=== PATIENT | male | born 1970 | race Caucasian/White ===

== ENCOUNTER 2017-12-14 19:09 | Emergency (ER) | payer BC ==
[~2017-12-14] VITALS: Ht 185.4 cm; Wt 99.8 kg
[2017-12-14 20:10] VITALS: Ht 185.4 cm; Wt 99.8 kg
[2017-12-14] MEDS ORDERED: MoRPHine SULFATE 10 MG/ML CARP/VIAL IV STA (20:30)
[2017-12-14] MEDS ORDERED: ONDANSETRON INJ 2 MG/ML 2 ML VIAL IV STA (20:30)
[2017-12-14] MEDS ORDERED: MoRPHine SULFATE 4 MG/ML 1 ML CARP\\VIAL ONE (21:12)
[2017-12-14] MEDS ORDERED: MoRPHine SULFATE 2 MG/ML CARP ONE (21:12)
--- NOTE | 2017-12-14 21:16 | DIAGNOSTIC IMAGING REPORT ---
LEFT HUMERUS 2 VIEWS HISTORY: Left arm pain. fall, eval fracture, dislocation COMPARISON: None. FINDINGS: Transverse fracture within the midshaft of the left humerus which demonstrates up to 6 mm of medial displacement. No dislocation of the humerus. Soft tissue swelling within the mid upper arm. There is also mild medial angulation. No radiopaque foreign bodies. IMPRESSION: Mildly displaced and angulated midshaft fracture of the left humerus. Electronically signed by: Christiano Knowles M.D. 12/14/2017 9:15 PM Dictated Date/Time: 12/14/2017 9:13 PM
--- NOTE | 2017-12-14 22:11 | EMERGENCY ROOM VISIT NOTE ---
ED Visit Note First contact with patient: 20:16 CHIEF COMPLAINT: Arm injury HISTORY OF PRESENT ILLNESS: This 47-year-old male patient presents to the emergency department with complaint of left arm injury. Patient states that he slipped on ice and fell on to the upper arm earlier today with immediate onset of pain. There is limitation of motion of the arm because of the pain. The patient did not hear a cracking sound at the time of the injury. There was no dizziness, chest pain, shortness of breath, or loss of consciousness before the fall. Patient denies any previous injuries to this arm. Patient denies any other associated injuries with the fall, denies hitting his head or loss of consciousness. He denies any wrist pain, elbow pain, or shoulder pain. He denies any numbness or tingling in the arm. He does not take any blood thinners. REVIEW OF SYSTEMS: A complete 10 point review of systems was reviewed with the patient with pertinent positives and negatives as per history of present illness. All else were negative. PMH: Hypertension SOCIAL HISTORY: Patient lives at home. Non-smoker, no excessive alcohol use. PHYSICAL EXAM: Vital Signs: Reviewed nurse's notes. The mid upper arm is very swollen, mildly ecchymotic, tender to palpation, and deformed in the middle of the upper arm. The range of motion of the shoulder is limited in all directions because of the pain. There is no tenderness of the clavicle. There is no bony tenderness to palpation of the shoulder, elbow, or wrist. Radial pulse 2+ with brisk cap refill in the fingers. Sensation intact distally to light touch. Patient is able to make a fist and give a thumbs up. LUNGS: The lungs are clear to auscultation. HEART: Regular rate and rhythm without murmurs , ectopy, gallops, or rubs. NEUROLOGICAL: Alert and cooperative. Sensory and motor functions grossly intact. HEAD: Atraumatic, without temporal or scalp tenderness. EYES: PERRL, EOMI, no discharge or injection. IMAGING: LEFT HUMERUS 2 VIEWS HISTORY: Left arm pain. fall, eval fracture, dislocation COMPARISON: None. FINDINGS: Transverse fracture within the midshaft of the left humerus which demonstrates up to 6 mm of medial displacement. No dislocation of the humerus. Soft tissue swelling within the mid upper arm. There is also mild medial angulation. No radiopaque foreign bodies. IMPRESSION: Mildly displaced and angulated midshaft fracture of the left humerus. EMERGENCY DEPARTMENT COURSE: I examined the patient. Differential diagnosis includes arm contusion, fracture, dislocation, among others. An X-ray of the humerus shows an acute fracture of the mid-shaft of the humerus which is mildly displaced and medially angulated. The patient was given IV morphine for his pain, with good improvement. I spoke with Dr. Dwyer, orthopedic surgery, he recommends coaptation splint and sling, and the patient should call tomorrow morning to set up a follow-up appointment.. The patient was placed in an Ortho- Glass coaptation splint and sling under my supervision, neurovascularly intact post-splinting. The patient was given a dose of oxycodone for additional pain management, and given a take-home pack, as well as a prescription sent to the pharmacy for ongoing pain management. Patient was updated on discharge instructions and plan for follow-up with orthopedic surgery. He was also given strict return precautions should his symptoms worsen, he verbalized understanding. Patient was discharged home in stable condition and ambulatory. Current/Historical Medications Scheduled Ascorbic Acid (Vitamin C), 1,000 MG PO D Enalapril (Vasotec), 1 TAB PO DAILY Ferrous Sulfate (Iron), 1 TAB PO 2XWK Metoprolol Succ (Toprol Xl) (Toprol-Xl), 0.5 TAB PO DAILY Multivitamins/Minerals (Mvi With Minerals), 1 TAB PO DAILY Scheduled PRN Oxycodone Ir (Roxicodone Ir), 1-2 TAB PO Q6H PRN for Severe Pain Vital Signs Date Time Temp Pulse Resp B/P (MAP) Pulse Ox O2 Delivery O2 Flow Rate FiO2 12/14/17 23:52 36.9 71 18 147/86 100 12/14/17 23:42 71 18 147/86 12/14/17 20:10 36.9 68 20 166/85 100 Room Air Medications Administered Medications (Trade) Dose Ordered Sig/Jerome Route Start Time Stop Time Status Last Admin Dose Admin Ondansetron HCl (Zofran Inj) 4 mg NOW STAT IV 12/14/17 20:30 12/14/17 20:33 DC 12/14/17 21:15 4 MG Morphine Sulfate (MoRPHine SULFATE INJ) 2 mg STK-MED ONCE .ROUTE 12/14/17 21:12 12/14/17 21:13 DC 12/14/17 21:16 2 MG Morphine Sulfate (MoRPHine SULFATE INJ) 4 mg STK-MED ONCE .ROUTE 12/14/17 21:12 12/14/17 21:13 DC 12/14/17 21:15 4 MG Oxycodone HCl (Roxicodone Immediate Rel Tab) 5 mg NOW STAT PO 12/14/17 22:51 12/14/17 22:53 DC 12/14/17 23:04 5 MG Oxycodone HCl (Roxicodone Immediate Rel 5MG Home Pack) 1 homepack UD ONCE PO 12/14/17 23:00 12/14/17 23:01 DC 12/14/17 23:37 1 HOMEPACK Departure Information Impression Primary Impression: Fracture of shaft of left humerus Dispostion Home / Self-Care Condition GOOD Prescriptions Oxycodone Ir (Roxicodone Ir) 5 Mg Tab 1-2 TAB PO Q6H Y for Severe Pain, #20 TAB Prov: Jane Pang, SENIOR BUSINESS MANAGER 12/14/17 Referrals Jude Turner M.D. (PCP) Darron Dwyer D.O. Patient Instructions ED Fx Upper Ext, [facility] Additional Instructions You were seen and treated in the emergency department today for your left arm injury. X-rays today show a fracture of the midportion of your humerus bone. Keep the arm in the splint until you are seen by the orthopedic surgeon for follow up. Call tomorrow morning after 8:30am to schedule an appointment. Do not get the splint wet. Wear the sling for comfort. Apply ice to the upper arm intermittently and frequently over the next 2 days. Keep the arm elevated as much as possible. Oxycodone every 4 to 6 hours if needed for severe pain. You may also take Tylenol 1000 mg every 8 hours as needed for pain, not more than 3000 mg in 24 hours. Please return to the emergency Department for severe worsening pain, new numbness or tingling in the arm or inability to move your fingers, discoloration of the hand/fingers, or any other concerns. Work Instructions Return To Work: 3 days Problem Qualifiers Primary Impression: Fracture of shaft of left humerus Encounter type: initial encounter Fracture type: closed Fracture morphology : comminuted Fracture alignment: displaced Qualified Codes: S42.352A - Displaced comminuted fracture of shaft of humerus, left arm, initial encounter for closed fracture
[2017-12-14] MEDS ORDERED: METO25TA3 PO (22:49)
[2017-12-14] MEDS ORDERED: ENAL5TAB83 PO ×2 (22:49)
[2017-12-14] MEDS ORDERED: MULT-513 PO ×2 (22:51)
[2017-12-14] MEDS ORDERED: OXYCODONE HCL IR 5 MG TAB (IMMEDIATE RELEASE) PO STA (22:51)
[2017-12-14] MEDS ORDERED: FERR1TAB23 PO ×2 (22:51)
[2017-12-14] MEDS ORDERED: ASCO10003 PO ×2 (22:51)
[2017-12-14] MEDS ORDERED: OXYCODONE IR HOME PACK PO ONE (23:00)
[2017-12-14] MEDS ORDERED: OXYC1TAB3 PO (23:45)
[2017-12-14 23:52] VITALS: BP 147/86; PULSE 71; TEMP 36.9; O2SAT 100
[2017-12-15] MEDS ORDERED: OXYC1TAB3 PO ×2 (16:32)
[2017-12-15] MEDS ORDERED: MISC1CAP60 PO ×2 (16:33)
[2017-12-15] MEDS ORDERED: SELENIUM PO ×2 (16:45)
[2017-12-15] MEDS ORDERED: FLAX1CAP11 PO ×2 (16:45)
[2017-12-15] MEDS ORDERED: METO25TA3 PO ×2 (16:46)
== END 2017-12-14 23:52 | disposition home or self-care (01) ==
LOC: C.EDB 19:12 → C.EDD 23:52
DX: S42.352A Displaced comminuted fracture of shaft of humerus, left arm, initial encounter for closed fracture (principal); W00.0XXA Fall on same level due to ice and snow, initial encounter; I10 Essential (primary) hypertension

== ENCOUNTER 2017-12-16 10:59 | Day surgery (SDC) | payer BC ==
--- NOTE | 2017-12-15 12:03 | HISTORY & PHYSICAL EXAMINATION ---
DATE OF ADMISSION: 12/16/2017 SUBJECTIVE CHIEF COMPLAINT: The patient is a 47-year-old male that sustained a fall onto the outstretched left upper extremity after slipping on ice on 12/15/2017. He was placed in a coaptation splint in the Emergency Room. Initial x-rays in the Emergency Room demonstrated alignment of the mid shaft humerus fracture. New x-rays in the office demonstrated increased angulation greater than 20 degrees of the fracture. It was discussed with the patient, and he would like to proceed with an ORIF of the left humerus fracture. PAST MEDICAL HISTORY: Significant for hypertension. PAST SURGICAL HISTORY: [place] teeth surgery. SOCIAL HISTORY: Denies alcohol use, denies smoking or tobacco use. Denies IV or illegal drug use. FAMILY HISTORY: His uncle had a history of a heart attack. ALLERGIES: PENICILLIN, HE DEVELOPS A RASH; TETANUS, HE GETS SWELLING. MEDICATIONS: Vasotec 5 mg daily and metoprolol 25 mg daily. REVIEW OF SYSTEMS: He denies headaches, fevers, chills, double vision, blurry vision, sore throat, cough, chest pain, nausea, vomiting, diarrhea, constipation, numbness or tingling, tired, urinary difficulties thoughts to harm himself or harm others or depression. He is positive for having some left shoulder pain. OBJECTIVE: GENERAL APPEARANCE: The patient is a 47-year-old male, sitting in no acute distress. He is well dressed, well nourished. VITAL SIGNS: He is 6 feet 1 inch tall. He is 226 pounds, blood pressure is 122/80. HEENT: Normocephalic, atraumatic. Extraocular movements are intact. Mucosa was moist. No septal deviation. NECK: Supple with no lymphadenopathy, no JVD, no thyromegaly. HEART: Regular rate and rhythm with no murmurs or gallops. LUNGS: Clear to auscultation. No wheezing or rhonchi. ABDOMEN: Soft, nontender, nondistended. Normal bowel sounds, no hepatosplenomegaly. EXTREMITIES: Paying particular attention to the left upper extremity, he has diffuse tenderness along the humerus. He has inability to move his arm due to pain. Neurovascularly he is intact distally at the fingers. He is able to move his fingers well. Pulses were compared bilaterally and were equal. He has some ecchymosis as well. NEUROLOGIC: Cranial nerves II-XII were intact. Pulses were compared bilaterally and were equal. IMAGING: Three views of the humerus demonstrated increased angulation greater than 20 degrees from previous Emergency Room films. IMPRESSION: Displaced left humeral shaft fracture. PLAN: The patient is scheduled for an ORIF of the left humerus fracture. Risks and benefits to surgery were discussed with the patient that included but not limited to infection, DVT, pain, stiffness, nonunion, need for revision surgeries, failure to relieve all symptoms, progressive arthritis, damage to blood vessels, damage to nerves, anesthesia risks and were all discussed with the patient and he wishes to proceed. All questions were answered to his satisfaction. No DVT prophylaxis is needed and he will be able to go home with self-care. JAK
[~2017-12-16] VITALS: Ht 185.4 cm; Wt 102.7 kg
[~2017-12-16 10:59] MED LIST: ASCO10003 PO; CLINDAMYCIN 600 MG/54 ML D5W IV SCH; DEXAMETHASONE SOD INJ 4 MG/ML VIAL ONE; ENAL5TAB83 PO; FERR1TAB23 PO; FLAX1CAP11 PO; LACTATED RINGER'S 1000ML 1,000 ML IV SCH; METO25TA3 PO; MISC1CAP60 PO; MULT-513 PO; OXYC1TAB3 PO; ROPIVACAINE 0.5% 5 MG/ML 30 ML VIAL ONE; SELENIUM PO
[2017-12-16 11:33] LABS: HEMATOCRIT 36.3 % (42-52); HEMOGLOBIN 12.7 g/dL (14.0-18.0); MEAN CELL VOLUME 85.2 fL (80-100); MEAN CORPUSCULAR HEMOGLOBIN 29.8 pg (25-34); MEAN PLATELET VOLUME 10.2 fL (7.4-10.4); PLATELET COUNT 132 K/uL (130-400); RED CELL DISTRIBUTION WIDTH CV 13.3 % (11.5-14.5); RED CELL DISTRIBUTION WIDTH SD 40.6 fL (36.4-46.3); WHITE BLOOD COUNT 5.53 K/uL (4.8-10.8)
[2017-12-16 11:42] LABS: PTT PATIENT 27.1 SECONDS (21.0-31.0)
--- NOTE | 2017-12-16 11:47 | DIAGNOSTIC IMAGING REPORT ---
TWO VIEW CHEST CLINICAL HISTORY: Preoperative examination. FINDINGS: PA and lateral chest radiographs are obtained. No prior studies are available for comparison at the time of dictation. The cardiomediastinal silhouette is unremarkable. The lungs and pleural spaces are clear. There is no pneumothorax. The bony thorax appears intact. A left humeral fracture is noted on the lateral view. IMPRESSION: 1. No active disease in the chest. 2. Left humeral fracture. Electronically signed by: Danie Lee M.D. 12/16/2017 11:45 AM Dictated Date/Time: 12/16/2017 11:45 AM
[2017-12-16 12:03] VITALS: BP 150/79; PULSE 62; TEMP 37; O2SAT 100; Ht 185.4 cm; Wt 102.7 kg
--- NOTE | 2017-12-16 12:18 | History & Physical Bridge Note ---
H&P Re-Evaluation Bridge Note: I have examined the patient, reviewed the History & Physical and in the interval since the performance of the History & Physical I have noted the following changes of clinical significance: No changes noted
[2017-12-16] MEDS ORDERED: ACET-1256 PO ×2 (12:31)
[2017-12-16] MEDS ORDERED: MIDAZOLAM HCL 1 MG/ML 2ML VIAL ONE (12:34)
[2017-12-16] MEDS ORDERED: FENTANYL CITRATE INJ 50 MCG/1 ML 2 ML VIAL ONE (12:35)
[2017-12-16] MEDS ORDERED: BACITRACIN 50000 UNIT VIAL ONE (12:43)
[2017-12-16] MEDS ORDERED: ROCURONIUM BROMIDE 10 MG/ML 5 ML VIAL IV ONE (13:46)
[2017-12-16] MEDS ORDERED: PROPOFOL IV EMULSION 10 MG/ML 20 ML VIAL IV ONE (13:46)
[2017-12-16] MEDS ORDERED: ONDANSETRON INJ 2 MG/ML 2 ML VIAL ONE ×2 (13:46→13:47)
[2017-12-16] MEDS ORDERED: NEOSTIGMINE METHYLSULFATE 5 MG/5 ML SYR ONE (13:47)
[2017-12-16] MEDS ORDERED: LIDOCAINE HCL 2% 2 ML VIAL (20MG/ML) ONE (13:47)
[2017-12-16] MEDS ORDERED: GLYCOPYRROLATE INJ 0.2 MG/ML VIAL ONE (13:47)
[2017-12-16] MEDS ORDERED: FENTANYL CITRATE INJ 50 MCG/1 ML 2 ML VIAL IV PRN (15:00)
[2017-12-16] MEDS ORDERED: HYDROmorphone INJ 1 MG/ML SYR IV PRN (15:00)
[2017-12-16] MEDS ORDERED: MEPERIDINE HCL 25 MG/ML CARP IV PRN (15:00)
[2017-12-16] MEDS ORDERED: LABETALOL HCL IV 5 MG/ML 20ML IV PRN (15:00)
[2017-12-16] MEDS ORDERED: EpHEDrine SULFATE INJ 50 MG/ML AMP IV PRN (15:00)
[2017-12-16] MEDS ORDERED: ATROPINE SULFATE 0.1 MG/ML 5ML SYR IV PRN (15:00)
[2017-12-16] MEDS ORDERED: ONDANSETRON INJ 2 MG/ML 2 ML VIAL IV PRN ×2 (15:00→15:45)
--- NOTE | 2017-12-16 15:01 | [facility] Operative Report ---
Operative Report Operative Date Dec 16, 2017. Pre-Operative Diagnosis Left Humerus Fracture Post-Operative Diagnosis Left Humerus Fracture Procedure(s) Performed Open Reduction Internal Fixation Left Humerus Fracture Surgeon Dr. Chapincito Chan [employer] Preparator Surgeon(s) John Fernández PA-c Estimated Blood Loss 50 ML Findings same as above Specimens None per Surgeon Drains None Anesthesia Type General Regional Complication(s) none Disposition Recovery Room / PACU Indications The patient is a 47-year-old male sustained a fall to the outstretched left upper upper extremity. Initial x-rays demonstrated reasonable alignment at humerus fracture. Follow-up x-rays demonstrated significant increase in angulation. The amount of angulation I recommended open reduction internal fixation. Description of Procedure Risks, benefits and alternatives to surgery including, but not limited to, infection DVT, pain, stiffness, need for revision surgery, failure to relieve all symptoms, damage to blood vessels, damage to nerves, risk of anesthesia were discussed with the patient and they wished to proceed. The patient was identified. Laterality was confirmed and marked. The patient received a preoperative antibiotic as well as an interscalene block. They were transferred to the operating room and placed in the supine position and induced into general endotracheal anesthesia per the anesthesia staff. There were then placed in a slight beachchair position. All pressure points were well padded.. We confirmed that we're able to achieve proper visualization of the fracture under fluoroscopy the arm was then prepped and draped in the usual standard manner with ChloraPrep. I made a longitudinal incision just lateral to the midline, sharply incising through the skin and utilizing Bovie electrocautery to achieve hemostasis. I identified the cephalic vein and mobilized it medially. I mobilized the deltoid laterally and identified the fracture site. Holding traction on the arm I then reduced the fracture. I held the fracture in position with a pointed reduction clamp and confirmed reduction on fluoroscopy views. I then positioned a 7 hole Synthes large frag narrow titanium plate into position. Risks, benefits and alternatives to surgery including, but not limited to, infection DVT, pain, stiffness, need for revision surgery, failure to relieve all symptoms, damage to blood vessels, damage to nerves, risk of anesthesia were discussed with the patient and they wished to proceed. The patient was identified. Laterality was confirmed and marked. The patient received a preoperative antibiotic as well as an interscalene block. They were transferred to the operating room and placed in the supine position and induced into general endotracheal anesthesia per the anesthesia staff. There were then placed in a slight beachchair position. All pressure points were well padded.. We confirmed that we're able to achieve proper visualization of the fracture under fluoroscopy the arm was then prepped and draped in the usual standard manner with ChloraPrep. I made a longitudinal incision just lateral to the midline, sharply incising through the skin and utilizing Bovie electrocautery to achieve hemostasis. I identified the cephalic vein and mobilized it medially. I mobilized the deltoid laterally and identified the fracture site. Holding traction on the arm I then reduced the fracture. I held the fracture in position with a pointed reduction clamp and confirmed reduction on fluoroscopy views. I then positioned a 7 hole Synthes large frag narrow locking plate into position. I utilized a titanium plate as there was a question of a history of allergy to steal. I placed a nonlocking screw into a oblong hole and adjusted the height of the plate as necessary. I then placed another screw along the contralateral side of the fracture. I then confirmed reduction on fluoroscopy views. I then placed 2 screws proximally as well as 2 distally. I then again confirmed reduction on AP and lateral views and I was satisfied with the reduction as well as the screw lengths. I thoroughly irrigated the wound. The deltopectoral interval was closed with interrupted #1 Vicryl suture. The subcutaneous tissue was closed with interrupted 2-0 Vicryl suture. The skin was closed with nylon. A sterile dressing was applied. A posterior splint was placed. A sling was placed. All needle and sponge counts were correct at the end of the procedure. The patient was transferred to the PACU in stable condition without apparent complication. The PA-C was necessary for assistance with procedure for assistance in positioning, I attest to the content of the Intraoperative Record and any orders documented therein. Any exceptions are noted below.
[2017-12-16] MEDS ORDERED: SODIUM CHLORIDE 0.9% 1000ML 1,000 ML IV SCH (15:32)
[2017-12-16] MEDS ORDERED: OXYC-57 PO ×2 (15:36)
--- NOTE | 2017-12-16 15:43 | Discharge Instructions ---
Discharge Instructions Date of Service Dec 16, 2017. Admission Reason for Admission: Left Arm Unspecified Humerus Shaft Fracture Discharge Discharge Diagnosis / Problem: S/P Left ORIF humerus fracture Discharge Goals Goal(s): Decrease discomfort, Improve function Activity Recommendations Activity Limitations: per Instructions/Follow-up section . Instructions / Follow-Up Instructions / Follow-Up ACTIVITY RECOMMENDATIONS: SELF CARE INSTRUCTIONS AFTER TOTAL SHOULDER ARTHROPLASTY A. You are to remain in the sling at all times. You have a splint on. That is to remain on at all times. There will be no PT until your follow up appointment. At that time we will start some elbow range of motion and shoulder pendulums. B. You may use ice as needed to operative shoulder. C. Take pain medication as directed if you have pain. You may use Tylenol for pain if you do not want to take Pain medication. SPECIAL CARE INSTRUCTIONS: VERY IMPORTANT TO READ AND REVIEW A. There are a few signs you need to watch for after you are home. Call [facility] at [phone] if you experience any of the followin. Increased severe shoulder pain. Some pain is expected especially when you exercise. 2. Increased swelling in you shoulder or arm; pain or swelling in either upper extremity. 3. Any fluid drainage from the incision. 4. Shortness of breath or chest pain. B. Please call [facility] at [phone] if you have any questions or concerns about your operation or recovery. C. Call your physician if: 1. Temperature is greater than 101 degrees (F). 2. Pain is not relieved by prescribed pain medications. 3. Increase drainage or redness from incision. 4. Unanswered questions or concerns. FOLLOW UP VISIT: Please call [facility] at [phone] to schedule a follow up appointment with Dr. Chan or his PA in 12-14 days from your surgery date. Current Hospital Diet Patient's current hospital diet: Discharge Diet Recommended Diet: Regular Diet Procedures Procedures Performed: Open Reduction Internal Fixation Left Humerus Fracture Pending Studies Studies pending at discharge: no Medical Emergencies . Who to Call and When: Medical Emergencies: If at any time you feel your situation is an emergency, please call 911 immediately. . Non-Emergent Contact Non-Emergency issues call your: Surgeon Call Non-Emergent contact if: temperature is above 101.5, your pain is worsening, wound has increased drainage, wound has increased redness . "Provider Documentation" section prepared by John Fernández. . VTE Core Measure Inpt VTE Proph given/why not?: Treatment not indicated [place] Drug Monitoring Program Search Results: patient reviewed within database, no issues identified
[2017-12-16] MEDS ORDERED: OXYCODONE/ACETAMINOPHEN 5-325 TAB PO PRN ×2 (15:45)
--- NOTE | 2017-12-16 15:57 | DIAGNOSTIC IMAGING REPORT ---
INTRAOPERATIVE FLUOROSCOPIC IMAGES OF THE LEFT HUMERUS CLINICAL HISTORY: ORIF LEFT HUMERUS FX COMPARISON STUDY: Left humerus radiographs December 14, 2017. Fluoroscopy time: 31 seconds. FINDINGS: 2 fluoroscopic images demonstrate internal fixation of the mid shaft fracture of the left humerus with plate and screws. Hardware is intact. Fracture alignment has markedly improved and is near anatomic. No unexpected radiopaque foreign bodies are present. IMPRESSION: Expected findings following internal fixation of the left humeral midshaft fracture. Electronically signed by: Andre Castañeda M.D. 12/16/2017 3:55 PM Dictated Date/Time: 12/16/2017 3:54 PM
[2017-12-16] MEDS ORDERED: NURSING VERBAL MED ORDER ONE (16:15)
[2017-12-16] MEDS ORDERED: PROMETHAZINE HCL INJ 6.25 MG in SODIUM CHLORIDE 0.9% 50ML 50 ML IV ONE (16:15)
--- NOTE | 2017-12-16 16:26 | Anesthesiology Progress Note ---
Anesthesia Post Op Note Date & Time Dec 16, 2017 at 16:25 Vital Signs Pain Intensity: 0 Vital Signs Past 12 Hours Date Time Temp Pulse Resp B/P (MAP) Pulse Ox O2 Delivery O2 Flow Rate FiO2 12/16/17 15:51 115/72 12/16/17 15:50 70 17 12/16/17 15:50 70 17 100 12/16/17 15:46 125/70 12/16/17 15:45 65 18 12/16/17 15:45 66 18 100 12/16/17 15:41 136/73 12/16/17 15:40 79 23 100 12/16/17 15:40 79 23 12/16/17 15:36 124/72 12/16/17 15:35 66 15 12/16/17 15:35 15 12/16/17 15:30 36.4 62 16 124/72 98 7 12/16/17 12:03 37.0 62 18 150/79 (102) 100 Room Air Notes Mental Status: alert / awake / arousable, participated in evaluation Pt Amnestic to Procedure: Yes Nausea / Vomiting: adequately controlled Pain: adequately controlled Airway Patency, RR, SpO2: stable & adequate BP & HR: stable & adequate Hydration State: stable & adequate Anesthetic Complications: no major complications apparent Block working well in pacu
[2017-12-16 16:42] VITALS: BP 102/69; PULSE 68; TEMP 36.5; O2SAT 99
[2017-12-16 17:15] VITALS: BP 116/62; PULSE 72; O2SAT 99
[2017-12-16 17:45] VITALS: BP 128/72; PULSE 73; TEMP 36.9; O2SAT 98
== END 2017-12-16 18:10 | disposition home or self-care (01) ==
LOC: C.ACU 10:59
PROVIDERS: ATTEND Orthopaedic Surgery
DX: S42.302A Unspecified fracture of shaft of humerus, left arm, initial encounter for closed fracture (principal); W00.9XXA Unspecified fall due to ice and snow, initial encounter; I10 Essential (primary) hypertension